=== PATIENT | male | born 1965 | race Caucasian/White ===

== ENCOUNTER → 2022-04-11 | Outpatient (CLI) | payer OTHER, SELFPAY ==
--- NOTE | 2022-04-11 08:31 | EKG12_ITS ---
Test Reason : PREOP Blood Pressure : / mmHG Vent. Rate : 070 BPM Atrial Rate : 070 BPM P-R Int : 164 ms QRS Dur : 096 ms QT Int : 416 ms P-R-T Axes : 069 031 052 degrees QTc Int : 449 ms Normal sinus rhythm Normal ECG Confirmed by JASMIN ONEAL, LYLA ([id number]), fan mail editor ALYSSA FLORES ([id number]) on 04/12/2022 10:21:05 AM Referred By: Caesar Nolasco Confirmed By:LYLA CASTELLANOS MD
[2022-04-11 09:15] LABS: Hematocrit 43.5 % (40-54); Hemoglobin 14.3 g/dL (13.0-16.5); Mean Corp Hgb Conc 32.9 g/dL (32-36); Mean Corpuscular Hgb 28.3 pg (27.0-32.0); Mean Corpuscular Volume 86.1 fL (80-94); Mean Platelet Vol. 8.7 fl (6.2-12.0); Platelet Count 387 K/mm3 (150-450); RBC Distribution Width SD 37.7 fl (35.1-43.9); Red Blood Count 5.05 M/mm3 (4.6-6.2); White Blood Count 5.2 K/mm3 (4.4-11.0)
[2022-04-11 10:01] LABS: Anion Gap 7 (5-15); BUN 19 mg/dL (7-18); BUN/Creat Ratio 16.5 RATIO (10-20); Calcium,Total 9.2 mg/dL (8.5-10.1); Chloride 104 mmol/L (98-107); Creatinine, Serum 1.15 mg/dL (0.70-1.30); EST Glomerular Filtration Rate 70 mL/min (>60); Est Glom Filt Rate - Afr Amer 84 mL/min (>60); Glucose 114 mg/dL (74-106); Potassium 4.1 mmol/L (3.5-5.1); Sodium Level 140 mmol/L (136-145)
== END | disposition home or self-care (01) ==
PROVIDERS: PCP Internal Medicine Adolescent Medicine; Referring Provider Urology; Visit Provider Urology
DX: Z01.812 Encounter for preprocedural laboratory examination (principal); Z01.810 Encounter for preprocedural cardiovascular examination
CPT/HCPCS: 36415; 80048; 85027; 93005

== ENCOUNTER → 2022-06-28 | Outpatient (CLI) | payer OTHER, SELFPAY ==
[2022-06-28 14:52] LABS: PSA,Total - Annual Screen 0.57 ng/mL (0.00-4.00)
== END | disposition home or self-care (01) ==
LOC: LAB 13:46
PROVIDERS: PCP Internal Medicine Adolescent Medicine; Visit Provider Urology
DX: Z12.5 Encounter for screening for malignant neoplasm of prostate (principal)
CPT/HCPCS: 36415; 84153; G0103

== ENCOUNTER → 2022-12-31 | Outpatient (CLI) | payer OTHER, SELFPAY ==
--- NOTE | 2022-12-31 12:35 | RAD_ITS ---
EXAM: XR ABDOMEN, 1 VIEW CLINICAL INDICATION: CALCULUS OF URETER TECHNIQUE: Frontal supine view of the abdomen/pelvis. COMPARISON: No relevant prior studies available. FINDINGS: LOWER THORAX: No acute pathology. GASTROINTESTINAL TRACT: Unremarkable. Non-obstructive. No bowel or stomach distention. ORGANS: Tiny calculi overlying the left kidney. No organomegaly. BONES/JOINTS: No acute pathology. SOFT TISSUES: No acute pathology. VASCULATURE: Tiny calcifications in the low pelvis likely represent phleboliths. RAD/Abdomen Single View IMPRESSION: Tiny calculi overlying the left kidney. Electronically Signed: Cliff Patel MD at 4:32 EDT ,
== END | disposition home or self-care (01) ==
LOC: RAD 12:32
PROVIDERS: PCP Internal Medicine Adolescent Medicine; Referring Provider Urology; Visit Provider Urology
DX: N20.1 Calculus of ureter (principal); N20.0 Calculus of kidney
CPT/HCPCS: 74018